=== PATIENT | female | born 1970 | race Caucasian/White ===

== ENCOUNTER → 2024-03-30 07:58 | Outpatient (REF) | payer BC, SELFPAY | LOC: WDC 07:58 | PROVIDERS: ATTENDING PHYSICIAN Family Medicine | DX: Z12.31 Encounter for screening mammogram for malignant neoplasm of breast (principal) | CPT/HCPCS: 77063; 77067 ==

== ENCOUNTER → 2025-01-31 06:43 | Outpatient (REF) | payer BC, SELFPAY ==
[2025-01-31 08:17] LABS: Hematocrit 41.3 % (37.0-47.0); Hemoglobin 13.8 g/dL (12.0-16.0); Mean Corp Hgb Conc. 33.4 g/dL (33.0-37.0); Mean Corpuscular Volume 89.0 fL (81.0-99.0); Nucleated Red Blood Cells % 0 %; Platelet Count 276 10^3/uL (130-400); Red Cell Dist. Width 12.4 % (11.5-14.5)
[2025-01-31 08:29] LABS: Blood Urea Nitrogen 20 mg/dl (7-17); Calcium 9.7 mg/dl (8.4-10.2); Carbon Dioxide 31 mmol/L (22-30); Chloride 103 mmol/L (98-107); Glucose 109 mg/dl (70-99); Potassium 4.4 mmol/L (3.5-5.1); Sodium 141 mmol/L (135-145); eGFR > 60.00
== END ==
LOC: RCS 06:43
PROVIDERS: ATTENDING PHYSICIAN Orthopaedic Surgery; FAMILY PHYSICIAN Family Medicine
DX: Z01.818 Encounter for other preprocedural examination (principal)
CPT/HCPCS: 36415; 80048; 85025; 93005

== ENCOUNTER → 2025-03-31 07:42 | Outpatient (REF) | payer BC, SELFPAY | LOC: WDC 07:42 | PROVIDERS: ATTENDING PHYSICIAN Family Medicine | DX: Z12.31 Encounter for screening mammogram for malignant neoplasm of breast (principal) | CPT/HCPCS: 77063; 77067 ==